=== PATIENT | male | born 1985 | race Hispanic/Latino ===

== ENCOUNTER 2016-08-01 21:32 | Emergency (ER) | payer OTHER, MEDICAID ==
[2016-08-01 22:17] VITALS: BMI 37.5
[2016-08-01 22:21] VITALS: BP 176/105
[2016-08-01] MEDS ORDERED: Oxycodone/Acetaminophen 5/325 mg Tab PO STA (22:24)
--- NOTE | 2016-08-01 22:52 | ED PDOC ---
Arrival/HPI - General Chief Complaint: ENT Problem Time Seen by Provider: 08/01/16 22:07 Historian: Patient - History of Present Illness Narrative History of Present Illness (Text): 08/01/16 22:48 30yo male with PMHx of hypertension in ED for complaint of left sided jaw pain that radiates to his anterior ear. States pain started on Sunday and he was seen by his PMD on Sunday. He has been on Augmentin since Sunday for Mastoiditis. States he saw his PMD again today for worsening pain, and was referred to ED. He is taking OTC analgesic without relieve. denies fever, chills , ear pain, sore throat, any other complaint. Past Medical History - Provider Review Nursing Documentation Reviewed: Yes - Past History Past History: Non-Contributing - Infectious Disease Hx of Infectious Diseases: None - Pulmonary Hx Asthma: Yes - Endocrine/Metabolic Hx Diabetes Mellitus Type 2: Yes - Musculoskeletal/Rheumatological Hx Falls: No - Psychiatric Hx Psychophysiologic Disorder: No Hx Anxiety: No Hx Bipolar Disorder: No Hx Depression: No Hx Emotional Abuse: No Hx Hallucinations: No Hx Panic Disorder: No Hx Post Traumatic Stress Disorder: No Hx Psychosis: No Hx Physical Abuse: No Hx Schizophrenia: No Hx Sexual Abuse: No Hx Substance Use: No - Anesthesia Hx Anesthesia: No Hx Anesthesia Reactions: No Hx Malignant Hyperthermia: No Family/Social History - Physician Review Nursing Documentation Reviewed: Yes Family/Social History: Unknown Family HX Smoking Status: Never Smoked Hx Alcohol Use: No Hx Substance Use: No Allergies/Home Meds Allergies/Adverse Reactions: Allergies No Known Allergies Allergy (Verified 08/01/16 22:18) Home Medications: Home Meds Medication Instructions Recorded Confirmed Empagliflozin [Jardiance] 25 mg PO DAILY 07/10/15 07/10/15 Lovastatin 40 mg PO DAILY 07/10/15 07/10/15 Sitagliptin Phos/Metformin HCl 1 tab PO DAILY 07/10/15 07/10/15 [Janumet 50-1,000 mg Tablet] Review of Systems - Physician Review All systems were reviewed & negative as marked: Yes - Review of Systems Constitutional: Normal Eyes: Normal ENT: Other (Left sided jaw/face pain) Respiratory: Normal Cardiovascular: Normal Gastrointestinal: Normal Genitourinary Male: Normal Musculoskeletal: Normal Skin: Normal Neurological: Normal Endocrine: Normal Hemo/Lymphatic: Normal Psychiatric: Normal Physical Exam Vital Signs Reviewed: Yes Vital Signs Temp Pulse Resp BP Pulse Ox 08/01/16 22:15 98.8 F 104 H 19 176/105 H 98 Temperature: Afebrile Blood Pressure: Hypertensive Pulse: Regular Respiratory Rate: Normal Appearance: Positive for: Well-Appearing, Non-Toxic, Comfortable Pain Distress: None Mental Status: Positive for: Alert and Oriented X 3 - Systems Exam Head: Present: Atraumatic, Normocephalic Pupils: Present: PERRL Extroacular Muscles: Present: EOMI Conjunctiva: Present: Normal Mouth: Present: Moist Mucous Membranes, Other (Tenderness on palpation of left sided mandible/jaw area). No: Trismus Neck: Present: Normal Range of Motion Respiratory/Chest: Present: Clear to Auscultation, Good Air Exchange. No: Respiratory Distress, Accessory Muscle Use Cardiovascular: Present: Regular Rate and Rhythm, Normal S1, S2. No: Murmurs Abdomen: Present: Normal Bowel Sounds. No: Tenderness, Distention, Peritoneal Signs Back: Present: Normal Inspection Upper Extremity: Present: Normal Inspection. No: Cyanosis, Edema Lower Extremity: Present: Normal Inspection. No: Edema Neurological: Present: GCS=15, CN II-XII Intact, Speech Normal Skin: Present: Warm, Dry, Normal Color. No: Rashes Psychiatric: Present: Alert, Oriented x 3, Normal Insight, Normal Concentration Medical Decision Making ED Course and Treatment: 08/02/16 00:39 PT in ED for stated history. His pain was controlled in ED with Dilaudid, hence he declined Percocet. IAC CT FINDINGS: Sella: Unremarkable. Mastoid air cells: Unremarkable as visualized. No mastoid effusion. Auditory system: Unremarkable. Intact ossicles. No middle ear fluid. Bones/joints: No acute fracture. Soft tissues: Unremarkable. IMPRESSION: Normal sella/posterior auditory CT. PT states he is currently on Augmentin. Advised to finish the abx. he requested pain medication. States he takes Ibuprofen at home without relieve. Pt's symptoms likely secondary to TMJ. He was DC home with Percocet. Referred to a Dentist. - RAD Interpretation Radiology Orders: 08/01/16 22:24 IAC W/O CONTRAST [CT] Stat - Medication Orders Current Medication Orders: Discontinued Medications Hydromorphone HCl (Dilaudid) 1 mg IM Q4H STA Stop: 08/02/16 00:29 Hydromorphone HCl (Dilaudid) Confirm Administered Dose 1 mg .ROUTE .STK-MED ONE Stop: 08/02/16 00:32 Oxycodone/Acetaminophen (Percocet 5/325 Mg Tab) 1 tab PO STAT STA Stop: 08/01/16 22:25 Last Admin: 08/02/16 00:27 Dose: Not Given Non-Admin Reason: Patient Refused Disposition/Present on Arrival - Present on Arrival Any Indicators Present on Arrival: No History of DVT/PE: No History of Uncontrolled Diabetes: No Urinary Catheter: No History of Decub. Ulcer: No History Surgical Site Infection Following: None - Disposition Have Diagnosis and Disposition been Completed?: Yes Diagnosis: Temporomandibular joint disorder Disposition: HOME/ ROUTINE Disposition Time: 00:45 Patient Plan: Discharge Condition: STABLE Additional Instructions: Follow up with a Dentist Return to ED for any new or worsening symptoms Prescriptions: oxyCODONE/Acetaminophen [Percocet 5/325 mg Tab] 1 ea PO Q6 #6 tab Referrals: Gely Mccoy DO [Primary Care Provider] - Follow up with primary Anoop Palomino DMD [Staff Provider] - Follow up with primary
[2016-08-02] MEDS ORDERED: HYDROmorphone 1 mg/ml ISec IM STA (00:28)
[2016-08-02] MEDS ORDERED: HYDROmorphone 1 mg/ml ISec ONE (00:31)
[2016-08-02 01:02] VITALS: PULSE 98; RESP 18; TEMP 98.9; O2SAT 100
--- NOTE | 2016-08-02 07:36 | CT ---
PROCEDURE: CT OF THE TEMPORAL BONES WITHOUT CONTRAST HISTORY: left ear/jaw pain COMPARISON: None available. TECHNIQUE: High resolution axial images of the temporal bones were obtained. Coronal and sagittal reformats were generated. Radiation dose: Total exam DLP = 703 mGy-cm. This CT exam was performed using one or more of the following dose reduction techniques: Automated exposure control, adjustment of the mA and/or kV according to patient size, and/or use of iterative reconstruction technique. FINDINGS: RIGHT TEMPORAL BONE: RIGHT MIDDLE EAR: Normal. RIGHT INNER EAR: Cochlea: Normal. Semicircular canals: Normal. RIGHT MASTOID AIR CELLS: Normal. RIGHT INTERNAL AUDITORY CANAL: Normal. RIGHT EXTERNAL AUDITORY CANAL: Normal. RIGHT VESTIBULAR AND COCHLEAR AQUEDUCT: Normal. OTHER FINDINGS: None. LEFT TEMPORAL BONE: LEFT MIDDLE EAR: Normal. LEFT INNER EAR: Cochlea: Normal. Semicircular canals: Normal. LEFT MASTOID AIR CELLS: The most inferior air cells are opacified consistent with left mastoid minimal effusions here LEFT INTERNAL AUDITORY CANAL: Normal. LEFT EXTERNAL AUDITORY CANAL: Normal. LEFT VESTIBULAR AND COCHLEAR AQUEDUCTS: Normal. OTHER FINDINGS: Left maxillary sinus mucosal thickening with mild lobulation, chronic mucosal sinusitis underlying hyperplastic changes and/or small concomitant retention cysts are suggested. Minimal ethmoidal sinus mucosal thickening - all segments and bilateral. Leftward nasal septal deviation and spurring contacting the left inferior turbinate (superior aspect). This spurring and deviation encroaches on the left nasal airway passages. No mandibular condylar head erosions or cystic changes. Possible mild squaring of bilateral condylar heads . IMPRESSION: Minimal left mastoid effusion Left maxillary sinus chronic mucosal thickening-chronic sinusitis. Minimal lobulation -most consistent with either hyperplastic changes and or concomitant small retention cysts Leftward nasal septal spurring and deviation with left middle turbinate contact- - encroachment on the left nasal airway passages
== END 2016-08-02 01:03 | disposition home or self-care (01) ==
LOC: ED 21:32
DX: M26.602 Left temporomandibular joint disorder, unspecified (principal); E11.9 Type 2 diabetes mellitus without complications; I10 Essential (primary) hypertension
CPT/HCPCS: 70480; 96372; 99282; J1170